=== PATIENT | male | born 1965 | race African-American/Black ===

== ENCOUNTER 2021-04-27 17:41 | Emergency (ER) | payer MEDICAID ==
[~2021-04-27] VITALS: Ht 182.9 cm; Wt 109.0 kg
[2021-04-27] MEDS ORDERED: MIDAZOLAM 100MG/100ML PMX 100 ML IV PRN (18:15)
[2021-04-27] MEDS ORDERED: FENTANYL CITRATE/PF 500 MCG in SODIUM CHLORIDE 0.9% 40 ML IV PRN (18:15)
[2021-04-27] MEDS ORDERED: FENTANYL CITRATE 2,500 MCG in SODIUM CHLORIDE 0.9% 200 ML IV PRN (18:30)
[2021-04-27] MEDS ORDERED: LORAZEPAM 2MG/ML CPJ IV PRN (19:00)
[2021-04-27] MEDS ORDERED: MAGNESIUM HYDROXIDE 400 MG/5 ML PO PRN (19:00)
[2021-04-27] MEDS ORDERED: THIAMINE IV SCH (19:00)
[2021-04-27] MEDS ORDERED: DEXT 5%/0.45% NACL 1000ML IV SCH (19:00)
[2021-04-27] MEDS ORDERED: GUAIFENESIN 200 MG/10 ML PO PRN (19:00)
[2021-04-27] MEDS ORDERED: FOLIC ACID IV SCH (19:00)
[2021-04-27] MEDS ORDERED: LORAZEPAM 0.5MG TABLET PO PRN (19:00)
[2021-04-27] MEDS ORDERED: ONDANSETRON 4MG/2ML VIAL IV PRN (19:00)
[2021-04-27] MEDS ORDERED: SIMETHICONE PO PRN (19:00)
[2021-04-27] MEDS ORDERED: ACETAMINOPHEN 325MG TABLET PO PRN (19:00)
[2021-04-27] MEDS ORDERED: FLEET ENEMA PR PRN (19:00)
[2021-04-27] MEDS ORDERED: HYDROMORPHONE 2 MG/ML IV PRN (19:00)
[2021-04-27] MEDS ORDERED: ALUMINUM HYDROXIDE PO PRN (19:00)
[2021-04-27] MEDS ORDERED: SODIUM CHLORIDE IV SCH (19:00)
[2021-04-27] MEDS ORDERED: VANCOMYCIN 1G PREMIX 200ML IV SCH (19:00)
[2021-04-27] MEDS ORDERED: DIPHENHYDRAMINE 50MG/ML VIAL IV PRN (19:00)
[2021-04-27] MEDS ORDERED: MULTIVITAMIN IV SCH (19:00)
[2021-04-27] MEDS ORDERED: SODIUM CHLORIDE 0.9% 1000ML IV SCH (19:00)
[2021-04-27] MEDS ORDERED: ACETAMINOPHEN 650MG SUPP PR PRN (19:00)
[2021-04-27] MEDS ORDERED: DOCUSATE SODIUM 100MG CAPSULE PO PRN (19:00)
[2021-04-27] MEDS ORDERED: CLONIDINE 0.1MG TABLET PO PRN (19:00)
[2021-04-27] MEDS ORDERED: [UNRECOGNIZED DRUG - OTHER] PO PRN (19:00)
[2021-04-27] MEDS ORDERED: IPRATROPIUM/ALBUTEROL 0.5-3(2.5)MG/3ML NEB HHN PRN (19:00)
[2021-04-27 19:05] LABS: BASOPHILS % 0.1 % (0.0-2.0); CLARITY URINE CLEAR (CLEAR); COLOR URINE YELLOW (YELLOW); EOSINOPHILS % 0.2 % (0.0-5.0); HEMATOCRIT. 46.3 % (42.0-52.0); HEMOGLOBIN. 15.1 g/dL (14.0-18.0); KETONES URINE TRACE (NEGATIVE); LEUKOCYTE ESTERASE URINE NEGATIVE (NEGATIVE); LYMPHOCYTES % 22.2 % (20.0-50.0); MEAN CORPUSCULAR HEMOGLOBIN 31.1 pg (28.0-32.0); MEAN CORPUSCULAR VOLUME 95.2 fL (80.0-94.0); MEAN PLATELET VOLUME 10.4 fl (7.4-10.4); MONOCYTES % 7.6 % (2.0-8.0); NEUTROPHILS % 69.9 % (40.0-76.0); NITRITE URINE NEGATIVE (NEGATIVE); OCCULT BLOOD URINE NEGATIVE (NEGATIVE); PH URINE 6.5 (4.5-8.0); PLATELET 146 x1000/uL (130-400); PROTEIN URINE 1+ (NEGATIVE); RED BLOOD CELL COUNT 4.87 mill/uL (4.7-6.1); RED CELL DISTRIBUTION WIDTH 13.3 % (11.6-14.6); SPECIFIC GRAVITY URINE 1.031 (1.005-1.030); UROBILINOGEN URINE 0.2 E.U./dL (0.2-1.0)
[2021-04-27 19:09] LABS: CHLORIDE 104 mEq/L (98-107)
[2021-04-27 19:14] LABS: ETHANOL BLOOD < 10 mg/dL
[2021-04-27] MEDS ORDERED: ALTEPLASE 100MG/VIAL IV SCH (19:15)
[2021-04-27] MEDS ORDERED: ALTEPLASE IV SCH (19:15)
[2021-04-27] MEDS ORDERED: ALTEPLASE 81 MG in CONTAINER,EMPTY 1 BAG IV SCH (19:15)
[2021-04-27] MEDS ORDERED: *NO ASPIRIN X 24 HOURS XX SCH (19:15)
[2021-04-27] MEDS ORDERED: CONTAINER EMPTY IV SCH (19:15)
[2021-04-27 19:16] LABS: *AMPHETAMINES SCREEN URINE NEGATIVE (NEGATIVE); *BARBITURATES SCREEN URINE NEGATIVE (NEGATIVE); *BENZODIAZEPINES SCREEN URINE NEGATIVE (NEGATIVE); *COCAINE SCREEN URINE NEGATIVE (NEGATIVE); CANNABINOID URINE SCREEN PRESUMTIVE POSITIVE (NEGATIVE); METHADONE URINE SCREEN NEGATIVE (NEGATIVE); OPIATES URINE SCREEN NEGATIVE (NEGATIVE); PHENCYCLIDINE URINE SCREEN NEGATIVE (NEGATIVE)
[2021-04-27 19:21] LABS: BG BASE EXCESS -5.6 mmol/L (-2.0-2.0); BG CARBOXYHEMOGLOBIN 5.5 % (0.5-1.5); BG DEOXYHEMOGLOBIN 4.6 % (0.0-5.0); BG FRACTION INSPIRED OXYGEN 40; BG HCO3 ACT 18.8 mmol/L (22.0-26.0); BG OXYGEN SATURATION 95.1 % (92.0-98.5); BG OXYHEMOGLOBIN 89.9 % (94.0-97.0); BG PCO2 33.9 mmHg (35.0-45.0); BG PH 7.361 (7.350-7.450); BG PO2 76.9 mmHg (75.0-100.0); BG TOTAL HEMOGLOBIN 15.5 g/dL (12.0-18.0); BG VENT MODE VENT - AC
[2021-04-27 20:34] VITALS: BP 151/90
[2021-04-27] MEDS ORDERED: ZOLPIDEM 5MG TABLET PO PRN (21:00)
[2021-04-27] MEDS ORDERED: FLUSH IVF SCH (22:00)
[2021-04-27] MEDS ORDERED: PIPERACILLIN/TAZOBACTAM 3.375 G in DEXTROSE 5% WATER 50 ML IV SCH (22:00)
[2021-04-27] MEDS ORDERED: SODIUM CHLORIDE 0.9% IVF SCH (22:00)
[2021-04-28] MEDS ORDERED: ETOMIDATE 2MG/ML 10ML VIAL IV ONE (08:29)
[2021-04-28] MEDS ORDERED: SUCCINYLCHOLINE CHLORIDE 200MG/10ML IV ONE (08:29)
[2021-04-28] MEDS ORDERED: VECURONIUM BROMIDE 10 MG/VIAL IV ONE (08:29)
[2021-04-28] MEDS ORDERED: ENOXAPARIN 40MG/0.4ML SYR SUBCUT SCH (09:00)
[2021-04-28] MEDS ORDERED: LEVOFLOXACIN 500MG PREMIX 100ML IV SCH (09:00)
== END 2021-04-27 21:20 | disposition short-term general hospital (02) ==
LOC: EDBD 17:41 → ER 17:41 → CANBEDREQ 23:53
DX: I63.9 Cerebral infarction, unspecified (principal); E78.00 Pure hypercholesterolemia, unspecified; I10 Essential (primary) hypertension; Z20.822 Contact with and (suspected) exposure to COVID-19
CPT/HCPCS: 31500; 36415; 36600; 37195; 70450; 70496; 70498; 71045; 80053; 80305; 80307; 80320; 80329; 81003; 82248; 82375; 82805; 82962; 83605; 83690; 83880; 84484; 85025; 86850; 86900; 86901; 87426; 93005; 99291; J0330; J2250; J2997; J3490; Z7610; 80076; 94002; 99285; J2543; J3370; J3411; J7030; J7060; G0480